=== PATIENT | female | born 1965 | race Caucasian/White ===

== ENCOUNTER 2017-06-25 10:20 | Day surgery (SDC) | payer OTHER ==
[~2017-06-25 10:20] MED LIST: B-12250 MCG PO; BIEST/PROGEST TOP; Fish Oil300 MG PO; LEVSOD125 PO; LOSA50 PO; Omeprazole20 M1; Super B Comple150 MG PO; TAMS.4ER PO; TUMERIC; VITAMIN D-32000 UNIT PO; Vitamin C100 M1 PO
== END 2017-06-26 22:51 | disposition home or self-care (01) ==
LOC: MOI MAM 10:20
PROC: 0HBT3ZX Excision of Right Breast, Percutaneous Approach, Diagnostic (ICD-10-PCS; principal; 2017-06-25)
DX: D05.11 Intraductal carcinoma in situ of right breast (principal)
CPT/HCPCS: 19081; 88305; 88360

== ENCOUNTER 2017-12-15 13:49 | Day surgery (SDC) | payer OTHER ==
[~2017-12-15] VITALS: Ht 167.6 cm; Wt 122.6 kg
[2017-12-15] MEDS ORDERED: SERT50 PO (14:39)
[2017-12-15] MEDS ORDERED: ALL DAY ALLERGY10 M1 PO (14:40)
== END 2017-12-15 15:32 | disposition home or self-care (01) ==
LOC: ORSCSDS 13:49
PROVIDERS: Surgery
PROC: 0DJD8ZZ Inspection of Lower Intestinal Tract, Via Natural or Artificial Opening Endoscopic (ICD-10-PCS; principal; 2017-12-15 15:00)
DX: Z12.11 Encounter for screening for malignant neoplasm of colon (principal); E03.9 Hypothyroidism, unspecified; K21.9 Gastro-esophageal reflux disease without esophagitis; I10 Essential (primary) hypertension; F32.9 Major depressive disorder, single episode, unspecified; E66.01 Morbid (severe) obesity due to excess calories; Z87.891 Personal history of nicotine dependence; Z68.42 Body mass index [BMI] 45.0-49.9, adult; Z79.899 Other long term (current) drug therapy
CPT/HCPCS: J0330; J1980; J2250; J2405; J7120

== ENCOUNTER 2024-09-25 10:01 | Emergency (ER) | payer BC ==
[~2024-09-25] VITALS: Ht 165.1 cm; Wt 103.4 kg
[~2024-09-25 10:01] MED LIST changes: +ALL DAY ALLERGY10 M1 PO; +SERT50 PO
[2024-09-25] MEDS ORDERED: Diltiazem HCl 5 MG / ML 5ML Vial IV ONE (10:20)
[2024-09-25] MEDS ORDERED: NS 1,000 ML IV SCH (10:20)
[2024-09-25 10:28] LABS: BASOPHILS ABSOLUTE AUTO 0.03 K/mm3 (0.00-0.23); BASOPHILS PERCENT AUTO 1 % (0-2); EOSINOPHILS PERCENT AUTO 2 % (0-6); Hematocrit 40.9 % (33.0-51.0); Hemoglobin 14.1 g/dL (11.5-16.0); IMMATURE GRAN ABSOLUTE AUTO 0.01 K/mm3 (0.00-0.10); IMMATURE GRAN PERCENT AUTO 0 % (0-1); LYMPHOCYTES ABSOLUTE AUTO 1.43 K/mm3 (0.84-5.20); LYMPHOCYTES PERCENT AUTO 29 % (21-46); MONOCYTES ABSOLUTE AUTO 0.43 K/mm3 (0.16-1.47); MONOCYTES PERCENT AUTO 9 % (4-13); Mean Corpuscular HGB 30.5 pg (26.0-34.0); Mean Corpuscular HGB Conc 34.5 g/dL (31.5-36.5); Mean Corpuscular Volume 88 fL (80-100); Mean Platelet Volume 9.6 fL (9.1-12.4); NEUTROPHILS ABSOLUTE AUTO 2.89 K/mm3 (1.96-9.15); NEUTROPHILS PERCENT AUTO 59 % (41-73); Platelet Count 204 K/mm3 (150-400); RDW Coefficient Variation 12.4 % (11.7-14.2); Red Blood Cell Count 4.63 M/mm3 (3.80-5.20); White Blood Cell Count 4.89 K/mm3 (4.00-11.30)
[2024-09-25 10:42] LABS: Albumin, Blood 4.3 g/dL (3.4-5.0); Albumin/Globulin Ratio 1.5 (0.8-1.8); Bilirubin, Total 0.8 mg/dL (0.1-1.0); Bun/Creatinine Ratio 20.2 (12.0-20.0); Creatinine, Blood 0.69 mg/dL (0.40-1.00); Globulin, Blood 2.9 g/dL (2.2-4.0); Potassium, Blood 3.9 mmol/L (3.5-5.5); Total Protein, Blood 7.2 g/dL (6.4-8.2)
[2024-09-25 10:55] LABS: Free Thyroxine 1.58 ng/dL (0.70-1.60); Thyroid Stimulating Hormone 0.124 uIU/mL (0.360-4.800); Triiodothyronine, Free 3.02 pg/mL (2.18-3.98)
[2024-09-25] MEDS ORDERED: Metoprolol Succinate 25 MG TABCR PO ONE (11:45)
[2024-09-25 12:30] VITALS: BP 150/92
[2024-09-25] MEDS ORDERED: SULTRIDS PO (13:14)
[2024-09-25] MEDS ORDERED: METO25ER PO (13:14)
[2024-09-25] MEDS ORDERED: ELIQUIS5 M2 PO (13:14)
== END 2024-09-25 13:30 | disposition home or self-care (01) ==
LOC: ER 10:01
PROVIDERS: Student in an Organized Health Care Education/Training Program
DX: I48.91 Unspecified atrial fibrillation (principal); L03.011 Cellulitis of right finger; I10 Essential (primary) hypertension; E03.9 Hypothyroidism, unspecified; Z79.899 Other long term (current) drug therapy; Z88.8 Allergy status to other drugs, medicaments and biological substances
CPT/HCPCS: 71046; 80053; 84439; 84443; 84481; 85025; 93005; 93010; 96361; 96374; 99285-25; A9270; J7030

== ENCOUNTER 2024-12-13 06:09 | Day surgery (SDC) | payer BC ==
[~2024-12-13 06:09] MED LIST changes: +ELIQUIS5 M2 PO; +METO25ER PO; +SULTRIDS PO
[2024-12-13] MEDS ORDERED: METO25ER PO (06:21)
[2024-12-13] MEDS ORDERED: MELO7.5 PO (06:22)
[2024-12-13] MEDS ORDERED: NS 1,000 ML IV ONE (06:27)
[2024-12-13 07:00] VITALS: BP 156/98
[2024-12-13 07:22] VITALS: BP 115/78
--- NOTE | 2024-12-13 07:22 | NUR ---
ASSUMED CARE FROM ANESTHESIA. PT AWAKE AND VERBALIZING WELL. SR 65 BPM.
[2024-12-13 07:30] VITALS: BP 114/75
[2024-12-13 07:35] VITALS: BP 122/81
--- NOTE | 2024-12-13 07:51 | NUR ---
PT AND VERBALIZED UNDERSTANDING OF WRITTEN AND VERBAL D/C INST.
[2024-12-13] MEDS ORDERED: Lidocaine HCl 2% 20 MG/ML 5ML SYR IV ONE (13:09)
[2024-12-13] MEDS ORDERED: Propofol 10mg/ml 20 ml Vial (Procedural) IV ONE (13:09)
== END 2024-12-13 23:00 | disposition home or self-care (01) ==
LOC: MHTC 06:09
DX: I48.19 Other persistent atrial fibrillation (principal); I10 Essential (primary) hypertension; I25.10 Atherosclerotic heart disease of native coronary artery without angina pectoris; E78.5 Hyperlipidemia, unspecified; E03.9 Hypothyroidism, unspecified; Z79.01 Long term (current) use of anticoagulants; Z79.899 Other long term (current) drug therapy; Z79.890 Hormone replacement therapy; Z88.1 Allergy status to other antibiotic agents; Z88.8 Allergy status to other drugs, medicaments and biological substances
CPT/HCPCS: 92960; 93005; 93010; J2003; J2704; J7030